=== PATIENT | male | born 1985 | race Caucasian/White ===

== ENCOUNTER → 2019-08-11 08:14 | Outpatient (CLI) | payer OTHER, SELFPAY ==
--- NOTE | 2019-08-11 08:25 | CT_ITS ---
STUDY: CT MAXILLOFACIAL SINUSES REASON FOR EXAM: Male, 34 years old. Sinusitis, headaches and pressure, multiple antibiotics with pressure returning, prior adenoidectomy. [facility] navigation protocol. RADIATION DOSAGE (If Supplied By Facility): CTDIvol = ( 33.06 ) mGy, DLP = ( 912.36 ) mGycm TECHNIQUE: The patient was scanned in a multi detector CT scanner. High resolution axial imaging was performed without the administration of intravenous contrast material. Sagittal and coronal images were reconstructed. Individualized dose optimization techniques were used for this CT. COMPARISON: None. FINDINGS: FRONTAL SINUSES: Normal aeration, without mucosal inflammatory disease. ETHMOIDAL SINUSES: Normal aeration, without mucosal inflammatory disease. MAXILLARY SINUSES: There is a 1.5 cm x 1 cm polyp or retention cyst in the inferior aspect of the right maxillary sinus. Mild degree of bilateral maxillary mucosal thickening. SPHENOIDAL SINUSES: Normal aeration, without mucosal inflammatory disease. There is patency of the bilateral maxillary infundibuli with normal uncinate processes, ethmoid bullae, and hiatus semilunaris. Normal bilateral middle turbinates. Normal bilateral inferior turbinates. Normal midline nasal septum. There is patency of the bilateral nasal airways. The visualized osseous structures are normal. The visualized bilateral orbital contents are normal. CT/Sinus/Facial Bone IMPRESSION: Mild degree of mucosal thickening of the maxillary sinuses bilaterally. 1.5 cm x 1 cm polyp or retention cyst in the inferior aspect of the right maxillary sinus. Electronically Signed: Cody Cartwright, at 14:39 EST , Service support ,
== END ==
PROVIDERS: Family Provider Family Medicine; PCP Family Medicine; Referring Provider Otolaryngology; Visit Provider Otolaryngology
DX: J32.9 Chronic sinusitis, unspecified (principal)
CPT/HCPCS: 70486

== ENCOUNTER → 2020-01-27 08:18 | Outpatient (CLI) | payer OTHER, SELFPAY ==
[2020-01-31 09:41] LABS: Semen Analysis Post Vas ABSENT
== END ==
PROVIDERS: PCP Family Medicine; Referring Provider Surgery; Visit Provider Surgery
DX: Z30.2 Encounter for sterilization (principal)
CPT/HCPCS: 89321